=== PATIENT | female | born 1990 | race Caucasian/White ===

== ENCOUNTER 2024-09-13 05:37 | Inpatient (IN) | payer BC ==
[2024-09-13] MEDS ORDERED: Sodium Chloride 0.9% 10 ML Syringe FLUSH PRN ×2 (05:46→09:42)
[2024-09-13] MEDS ORDERED: Oxytocin/0.9 % Sodium Chloride 30 UNIT/500 ML BAG IV SCH (06:00)
[2024-09-13 06:14] LABS: BASOPHILS PERCENT AUTO 0.3 % (0.0-1.0); EOSINOPHILS PERCENT AUTO 0.3 % (0.0-6.0); HEMATOCRIT 34.1 % (37.0-47.0); HEMOGLOBIN 11.9 gm/dl (12.0-16.0); IMMATURE GRAN ABSOLUTE AUTO 0.23 K/mm3 (0.00-0.05); IMMATURE GRAN PERCENT AUTO 2.2 % (0.0-0.4); LYMPHOCYTES ABSOLUTE AUTO 2.6 K/mm3 (1.0-4.8); MEAN CORPUSCULAR HEMOGLOBIN 32.4 pg (28.0-32.0); MEAN CORPUSCULAR HGB CONC 34.9 g/dl (32.0-36.0); MEAN CORPUSCULAR VOLUME 92.9 fl (83.0-99.0); MEAN PLATELET VOLUME 10.7 fl (9.4-12.3); MONOCYTES ABSOLUTE AUTO 0.9 K/mm3 (0.0-0.8); MONOCYTES PERCENT AUTO 8.5 % (0.0-8.0); NEUTROPHILS ABSOLUTE AUTO 6.9 K/mm3 (1.8-7.7); NEUTROPHILS PERCENT AUTO 64.7 % (41.0-71.0); PLATELET COUNT,PLT 198 K/mm3 (150-400); RED BLOOD CELL COUNT 3.67 M/mm3 (4.10-5.30); WHITE BLOOD CELL COUNT,WBC 10.66 K/mm3 (3.9-11.3)
[2024-09-13] MEDS ORDERED: dexmedeTOMIDine HCl 200 MCG/2 ML SDV ONE (06:35)
[2024-09-13] MEDS ORDERED: Dexamethasone 4 MG/ML SDV ONE (06:35)
[2024-09-13] MEDS ORDERED: Ondansetron 4 MG/2 ML SDV ONE (06:35)
[2024-09-13] MEDS ORDERED: Phenylephrine 1% 10 MG/ML SDV ONE (06:36)
[2024-09-13] MEDS ORDERED: Bupivacaine 0.75%/D5W 2 ML Amp ONE (06:39)
[2024-09-13] MEDS ORDERED: Morphine PF 10 MG/10 ML SDV ONE (06:40)
[2024-09-13] MEDS: Lactated Ringers 1,000 ML IV SCH (07:12)
[2024-09-13] MEDS: Citric Acid/Sodium Citrate Solution 30 ML Cup PO ONE (07:12)
[2024-09-13] MEDS: Metoclopramide 10 MG/2 ML SDV IVPUSH ONE (07:12)
[2024-09-13] MEDS ORDERED: Clindamycin Phosphate in D5W 900 MG in Premix Bag 1 BAG IV SCH (07:15)
[2024-09-13] MEDS ORDERED: ceFAZolin 2 GM Vial ONE (07:32)
[2024-09-13] MEDS ORDERED: fentaNYL 100 MCG/2 ML SDV IVPUSH PRN (08:26)
[2024-09-13] MEDS ORDERED: diphenhydrAMINE 50 MG/ML SDV IVPUSH PRN (08:26)
[2024-09-13] MEDS ORDERED: Meperidine 50 MG/ML Vial IVPUSH PRN (08:26)
[2024-09-13] MEDS ORDERED: Ondansetron 4 MG/2 ML SDV IVPUSH PRN (08:26)
[2024-09-13] MEDS: Ketorolac 30 MG/ML SDV IVPUSH ONE (08:54)
[2024-09-13] MEDS ORDERED: Docusate Sodium 100 MG Cap PO PRN (09:42)
[2024-09-13] MEDS ORDERED: Acetaminophen 325 MG Tab PO PRN (09:42)
[2024-09-13] MEDS ORDERED: Ondansetron 4 MG/2 ML SDV IV PRN (09:42)
[2024-09-13] MEDS ORDERED: Naloxone 0.4 MG/ML SDV IVPUSH PRN (09:42)
[2024-09-13] MEDS ORDERED: oxyCODONE 5 MG Tab PO PRN (09:42)
[2024-09-13] MEDS ORDERED: Ibuprofen 600 MG Tab PO SCH (10:00)
[2024-09-13] MEDS: diphenhydrAMINE 50 MG/ML SDV IVPUSH PRN (10:51)
[2024-09-13] MEDS: Dextrose 5%-Lactated Ringers 1,000 ML IV SCH (10:52)
[2024-09-13] MEDS: Ketorolac 30 MG/ML SDV IVPUSH SCH (15:11)
[2024-09-14] MEDS: ceFAZolin 2 GM in Sodium Chloride 0.9% 50 ML IV ONE (02:28)
[2024-09-14 07:13] LABS: HEMATOCRIT 28.9 % (37.0-47.0); MEAN CORPUSCULAR HEMOGLOBIN 32.5 pg (28.0-32.0); MEAN CORPUSCULAR HGB CONC 34.3 g/dl (32.0-36.0); MEAN CORPUSCULAR VOLUME 94.8 fl (83.0-99.0); MEAN PLATELET VOLUME 10.8 fl (9.4-12.3); PLATELET COUNT,PLT 160 K/mm3 (150-400); RED BLOOD CELL COUNT 3.05 M/mm3 (4.10-5.30)
[2024-09-14 07:14] LABS: HEMOGLOBIN 9.9 gm/dl (12.0-16.0)
[2024-09-14] MEDS: Ibuprofen 600 MG Tab PO SCH (08:30)
[2024-09-15] MEDS ORDERED: Oxytocin/0.9 % Sodium Chloride 30 UNIT/500 ML BAG IV ONE (07:50)
== END 2024-09-15 11:30 | disposition home or self-care (01) | DRG 540 ==
LOC: JD.OB 05:37
PROVIDERS: ADMIT Obstetrics & Gynecology; ATTEND Obstetrics & Gynecology
PROC: 10D00Z1 Extraction of Products of Conception, Low, Open Approach (ICD-10-PCS; principal; 2024-09-13 07:30)
DX: O34.211 Maternal care for low transverse scar from previous cesarean delivery (principal); Z3A.39 39 weeks gestation of pregnancy; Z37.0 Single live birth
CPT/HCPCS: 01961; 36415; 59025; 85025; 85027; 86592; 86850; 86900; 86901; 94762; A9270-GY; J0690; J1100; J1200; J1885; J2274; J2371; J2405; J2765; J3490; J7120; J7121; J7999